=== PATIENT | female | born 1955 | race African-American/Black ===

== ENCOUNTER 2019-07-03 01:57 | Emergency (ER) | payer MEDICARE, MEDICAID ==
[~2019-07-03] VITALS: Ht 160 cm; Wt 91.0 kg
[~2019-07-03 01:57] MED LIST: ASPI-1393 PO; BENA20TA10 PO; GABA-531; LEVE500T19 PO; OMEP20CA5 PO
[2019-07-03] MEDS ORDERED: TRAMADOL 50MG TABLET PO ONE (04:45)
[2019-07-03 06:36] VITALS: BP 119/75
== END 2019-07-03 06:39 | disposition home or self-care (01) ==
LOC: ER 02:12
DX: S29.8XXA Other specified injuries of thorax, initial encounter (principal); I10 Essential (primary) hypertension; W01.0XXA Fall on same level from slipping, tripping and stumbling without subsequent striking against object, initial encounter; Y93.89 Activity, other specified; Y92.89 Other specified places as the place of occurrence of the external cause
CPT/HCPCS: 71045; 93005; 99283